=== PATIENT | female | born 1965 | race Caucasian/White ===

== ENCOUNTER 2019-08-04 12:29 | Outpatient (CLI) | payer BC ==
[2019-08-04 14:04] LABS: BASOPHILS # (AUTO) 0.1 /CMM (0.0-0.2); BASOPHILS % (AUTO) 0.6 % (0.0-2.0); HEMATOCRIT 43 % (33-45); HEMOGLOBIN 14.5 g/dL (11.5-14.8); LYMPHOCYTES % (AUTO) 19.2 % (20.0-44.0); MEAN CORPUSCULAR HGB CONC 33 g/dl (31.0-36.0); MEAN CORPUSCULAR VOLUME 86 fL (82-100); MONOCYTES # (AUTO) 0.6 /CMM (0.1-1.30); MONOCYTES % (AUTO) 5.5 % (2.0-12.0); NEUTROPHILS # (AUTO) 7.4 /CMM (1.8-8.9); NEUTROPHILS % (AUTO) 70.7 % (43.0-81.0); PLATELET COUNT (AUTO) 291 /CMM (150-450); RED BLOOD CELL COUNT(AUTO) 5.03 MIL/uL (4.0-5.2); WHITE BLOOD COUNT (AUTO) 10.5 K/uL (4.3-11.0)
[2019-08-04 14:50] LABS: ALBUMIN 3.8 g/dL (3.4-5.0); BILIRUBIN,TOTAL 0.3 mg/dL (0.2-1.0); CALCIUM, SERUM 9.8 mg/dL (8.5-10.1); CREATININE 1.4 mg/dL (0.6-1.3); POTASSIUM 3.2 mmol/L (3.5-5.1); TOTAL PROTEIN, SERUM 8.4 g/dL (6.4-8.2)
== END 2019-08-04 23:59 | disposition home or self-care (01) ==
LOC: LAB 12:29
PROVIDERS: ATTEND Surgery
DX: Z98.84 Bariatric surgery status (principal)
CPT/HCPCS: 36415; 80053-TC; 82525; 82570; 83540-TC; 84446; 85025-TC; 85610-TC; 85730-TC

== ENCOUNTER 2020-11-03 12:02 | Outpatient (CLI) | payer BC ==
[2020-11-03 15:20] LABS: BASOPHILS # (AUTO) 0.1 K/uL (0.0-0.2); BASOPHILS % (AUTO) 0.4 % (0.0-2.0); EOSINOPHILS % (AUTO) 3.5 % (0.0-6.0); HEMATOCRIT 40 % (33-45); HEMOGLOBIN 13.2 g/dL (11.5-14.8); LYMPHOCYTES # (AUTO) 2.1 K/uL (0.8-4.8); MEAN CORPUSCULAR HGB CONC 33 g/dl (31.0-36.0); MEAN CORPUSCULAR VOLUME 88 fL (82-100); MONOCYTES # (AUTO) 0.7 K/uL (0.1-1.30); MONOCYTES % (AUTO) 5.8 % (2.0-12.0); NEUTROPHILS # (AUTO) 8.6 K/uL (1.8-8.9); NEUTROPHILS % (AUTO) 72.3 % (43.0-81.0); PLATELET COUNT (AUTO) 262 K/uL (150-450); RED BLOOD CELL COUNT(AUTO) 4.51 MIL/uL (4.0-5.2); WHITE BLOOD COUNT (AUTO) 11.8 K/uL (4.3-11.0)
[2020-11-03 20:49] LABS: ALBUMIN 3.8 g/dL (3.4-5.0); BILIRUBIN,DIRECT 0.1 mg/dL (0.0-0.2); BILIRUBIN,TOTAL 0.2 mg/dL (0.2-1.0); CALCIUM, SERUM 9.3 mg/dL (8.5-10.1); CREATININE 1.4 mg/dL (0.6-1.3); POTASSIUM 3.2 mmol/L (3.5-5.1); TOTAL PROTEIN, SERUM 7.9 g/dL (6.4-8.2)
[2020-11-07 18:06] LABS: VITAMIN B6 43.4 ug/L (2.0-32.8)
[2020-11-10 11:07] LABS: VITAMIN B1 THIAMINE,WB 198.1 nmol/L (66.5-200.0)
== END 2020-11-03 23:59 | disposition home or self-care (01) ==
LOC: LAB 12:02
PROVIDERS: ATTEND Surgery
DX: E66.01 Morbid (severe) obesity due to excess calories (principal); Z98.84 Bariatric surgery status
CPT/HCPCS: 36415; 80053-TC; 82247-TC; 82248-TC; 83540-TC; 84207; 84425; 84446; 85025-TC; 86780

== ENCOUNTER 2021-03-09 10:08 | Outpatient (CLI) | payer BC ==
[2021-03-10] MEDS ORDERED: IBUP-1955 PO (16:20)
== END 2021-03-09 23:59 | disposition home or self-care (01) ==
LOC: US 10:08
PROVIDERS: ATTEND Internal Medicine
DX: M25.561 Pain in right knee (principal)
CPT/HCPCS: 76882

== ENCOUNTER 2021-03-10 14:54 | Emergency (ER) | payer BC ==
[~2021-03-10] VITALS: Ht 157.5 cm; Wt 113.4 kg
[2021-03-10 15:39] VITALS: BP 149/93
--- NOTE | 2021-03-10 15:43 | NUR ---
PT SEEN BY NATALY REID
--- NOTE | 2021-03-10 15:57 | NUR ---
PT SEEN BY ANALYTIC MANAGER
[2021-03-10] MEDS ORDERED: IBUP-1955 PO (16:20)
--- NOTE | 2021-03-10 16:31 | NUR ---
Patient discharged to home in stable condition. Written and verbal after care instructions given. Patient verbalizes understanding of instruction.
== END 2021-03-10 16:29 | disposition home or self-care (01) ==
LOC: ER 15:52
DX: S90.112A Contusion of left great toe without damage to nail, initial encounter (principal); Z88.6 Allergy status to analgesic agent; Z88.1 Allergy status to other antibiotic agents; W22.8XXA Striking against or struck by other objects, initial encounter; Y93.89 Activity, other specified; Y92.89 Other specified places as the place of occurrence of the external cause; Y99.8 Other external cause status
CPT/HCPCS: 73660-TC

== ENCOUNTER 2022-02-11 16:28 | Emergency (ER) | payer BC, OTHER ==
[~2022-02-11] VITALS: Ht 157.5 cm; Wt 113.4 kg
[~2022-02-11 16:28] MED LIST: IBUP-1955 PO
--- NOTE | 2022-02-11 17:10 | NUR ---
BIBS W/ COMPLAINT OF STOMACH PAIN, FEELS "CONSTIPATED AND DEHYDRATED"
--- NOTE | 2022-02-11 17:21 | NUR ---
Urine sample obtained and sent to lab
[2022-02-11] MEDS ORDERED: METOCLOPRAMIDE HCL 10 MG/2 ML VIAL IV ONE (17:30)
[2022-02-11] MEDS ORDERED: diphenhydrAMINE HCL 50 MG/ML VIAL IV ONE (17:30)
[2022-02-11] MEDS ORDERED: IV NS 0.9% 1,000 ML IV ONE (17:30)
[2022-02-11] MEDS ORDERED: LIDOCAINE VISCOUS 2% UD 15 ML UDC MM ONE (17:30)
--- NOTE | 2022-02-11 17:30 | NUR ---
BLOOD DRAWN AND SENT TO LAB.
[2022-02-11] MEDS ORDERED: LIDOCAINE VISCOUS 2% UD 15 ML UDC ONE (17:39)
[2022-02-11] MEDS ORDERED: diphenhydrAMINE HCL 50 MG/ML VIAL ONE (17:39)
[2022-02-11] MEDS ORDERED: METOCLOPRAMIDE HCL 10 MG/2 ML VIAL ONE (17:39)
[2022-02-11 18:03] LABS: BASOPHILS % (AUTO) 0.3 % (0.0-2.0); EOSINOPHILS % (AUTO) 0.8 % (0.0-6.0); HEMATOCRIT 40 % (33-45); HEMOGLOBIN 13.4 g/dL (11.5-14.8); LYMPHOCYTES # (AUTO) 0.8 K/uL (0.8-4.8); LYMPHOCYTES % (AUTO) 7.6 % (20.0-44.0); MEAN CORPUSCULAR HGB CONC 33 g/dl (31.0-36.0); MEAN CORPUSCULAR VOLUME 88 fL (82-100); MONOCYTES # (AUTO) 0.6 K/uL (0.1-1.30); MONOCYTES % (AUTO) 5.1 % (2.0-12.0); NEUTROPHILS # (AUTO) 9.4 K/uL (1.8-8.9); NEUTROPHILS % (AUTO) 86.2 % (43.0-81.0); PLATELET COUNT (AUTO) 274 K/uL (150-450); RED BLOOD CELL COUNT(AUTO) 4.59 MIL/uL (4.0-5.2); WHITE BLOOD COUNT (AUTO) 10.9 K/uL (4.3-11.0)
[2022-02-11 18:10] LABS: CALCIUM, SERUM 9.5 mg/dL (8.5-10.1); CREATININE 1.3 mg/dL (0.6-1.3); POTASSIUM 3.3 mmol/L (3.5-5.1)
[2022-02-11 18:16] LABS: ALBUMIN 3.7 g/dL (3.4-5.0); TOTAL PROTEIN, SERUM 8.2 g/dL (6.4-8.2)
--- NOTE | 2022-02-11 18:24 | NUR ---
Sherri almanzar in ED - 02/11/22 at 1825 by ALEX BIBS W/ COMPLAINT OF STOMACH PAIN, FEELS "CONSTIPATED AND DEHYDRATED".
[2022-02-11] MEDS ORDERED: POTASSIUM CHLORIDE 20 MEQ TAB.PRT.SR PO ONE ×2 (20:29→20:30)
--- NOTE | 2022-02-11 20:38 | NUR ---
U/S TECH AT BEDSIDE
--- NOTE | 2022-02-11 21:18 | NUR ---
IV removed. Catheter intact and site benign. Pressure and 4x4 applied to site. No bleeding noted.Patient discharged to home in stable condition. Written and verbal after care instructions given. Patient verbalizes understanding of instruction.
[2022-02-11 21:29] VITALS: BP 130/72
== END 2022-02-11 21:18 | disposition home or self-care (01) ==
LOC: ER 16:41
DX: R10.13 Epigastric pain (principal); R10.11 Right upper quadrant pain; K80.20 Calculus of gallbladder without cholecystitis without obstruction; E86.0 Dehydration; I10 Essential (primary) hypertension; J45.909 Unspecified asthma, uncomplicated; Z88.8 Allergy status to other drugs, medicaments and biological substances; Z79.1 Long term (current) use of non-steroidal anti-inflammatories (NSAID)
CPT/HCPCS: 99284; 96374; 76705; 96361; 96375; 85025; 83690; 36415; 80053; J1200; J2765; J7030

== ENCOUNTER 2022-12-05 16:54 | Emergency (ER) | payer BC, OTHER ==
[~2022-12-05] VITALS: Ht 157.5 cm; Wt 117.9 kg
[2022-12-05] MEDS ORDERED: IV NS 0.9% 1,000 ML BAG IV ONE (17:30)
[2022-12-05] MEDS ORDERED: KETOROLAC TROMETHAMINE INJ 30 MG/ML VIAL IV ONE (17:30)
[2022-12-05] MEDS ORDERED: KETOROLAC TROMETHAMINE INJ 30 MG/ML VIAL ONE (17:37)
[2022-12-05 17:47] LABS: BASOPHILS % (AUTO) 0.4 % (0.0-2.0); EOSINOPHILS # (AUTO) 0.4 K/uL (0.0-0.7); EOSINOPHILS % (AUTO) 3.6 % (0.0-6.0); HEMATOCRIT 37 % (33-45); HEMOGLOBIN 12.5 g/dL (11.5-14.8); LYMPHOCYTES # (AUTO) 1.9 K/uL (0.8-4.8); MEAN CORPUSCULAR HEMOGLOBIN 30 PG (26.0-33.0); MEAN CORPUSCULAR HGB CONC 33 g/dl (31.0-36.0); MEAN CORPUSCULAR VOLUME 88 fL (82-100); MONOCYTES # (AUTO) 0.8 K/uL (0.1-1.30); MONOCYTES % (AUTO) 7.6 % (2.0-12.0); NEUTROPHILS # (AUTO) 7.3 K/uL (1.8-8.9); NEUTROPHILS % (AUTO) 70.4 % (43.0-81.0); PLATELET COUNT (AUTO) 256 K/uL (150-450); RED BLOOD CELL COUNT(AUTO) 4.23 MIL/uL (4.0-5.2); RED CELL DISTRIBUTION WIDTH 14.4 % (11.5-15.0); WHITE BLOOD COUNT (AUTO) 10.4 K/uL (4.3-11.0)
[2022-12-05 18:03] LABS: CALCIUM, SERUM 9.4 mg/dL (8.5-10.1); CARBON DIOXIDE 30 mmol/L (21-32); CHLORIDE 101 mmol/L (98-107); CREATININE 1.2 mg/dL (0.6-1.3); GLUCOSE 130 mg/dL (74-106); POTASSIUM 3.5 mmol/L (3.5-5.1); SODIUM SERUM 138 mmol/L (136-145); UREA NITROGEN, BLOOD 28 mg/dL (7-18)
[2022-12-05 18:09] LABS: ALANINE AMINOTRANSFERASE 33 U/L (12-78); ALBUMIN 3.5 g/dL (3.4-5.0); ALKALINE PHOSPHATASE 97 U/L (46-116); ASPARTATE AMINOTRANSFERASE 22 U/L (15-37); BILIRUBIN,DIRECT 0.1 mg/dL (0.0-0.2); BILIRUBIN,TOTAL 0.2 mg/dL (0.2-1.0); LIPASE 124 U/L (73-393); TOTAL PROTEIN, SERUM 7.5 g/dL (6.4-8.2)
[2022-12-05 18:27] LABS: APPEARANCE,URINE CLEAR (CLEAR); BILIRUBIN,URINE NEGATIVE (NEGATIVE); BLOOD, URINE NEGATIVE Ery/uL (NEGATIVE); COLOR,URINE YELLOW (YELLOW); KETONES,URINE NEGATIVE (NEGATIVE); LEUKOCYTE ESTERASE ,URINE NEGATIVE (NEGATIVE); NITRITE, URINE NEGATIVE (NEGATIVE); PH,URINE 5.5 (5.0-8.0); PROTEIN,URINE NEGATIVE (NEGATIVE); UGLUCOSE NEGATIVE (NEGATIVE); UROBILINOGEN,URINE 0.2 EU/dL (0.2)
[2022-12-05 21:35] VITALS: BP 117/85; TEMP 98.7; O2SAT 97
== END 2022-12-05 21:22 | disposition home or self-care (01) ==
LOC: ER 16:56
DX: N20.0 Calculus of kidney (principal); I10 Essential (primary) hypertension; J45.909 Unspecified asthma, uncomplicated; Z79.899 Other long term (current) drug therapy; Z88.5 Allergy status to narcotic agent; Z88.1 Allergy status to other antibiotic agents
CPT/HCPCS: 99285; 74176; 96374; 76700; 96361; 93005; 85025; 80048; 83690; 80076; 81003; 36415; 84484; J1885; J7030

== ENCOUNTER 2023-12-12 16:48 | Emergency (ER) | payer BC, OTHER ==
[~2023-12-12] VITALS: Ht 157.5 cm; Wt 117.9 kg
[2023-12-12 17:25] LABS: BASOPHILS # (AUTO) 0.1 K/uL (0.0-0.2); BASOPHILS % (AUTO) 0.6 % (0.0-2.0); EOSINOPHILS # (AUTO) 0.4 K/uL (0.0-0.7); EOSINOPHILS % (AUTO) 3.9 % (0.0-6.0); HEMATOCRIT 40 % (33-45); HEMOGLOBIN 13.4 g/dL (11.5-14.8); MEAN CORPUSCULAR HEMOGLOBIN 30 PG (26.0-33.0); MEAN CORPUSCULAR HGB CONC 34 g/dl (31.0-36.0); MEAN CORPUSCULAR VOLUME 89 fL (82-100); MONOCYTES # (AUTO) 0.8 K/uL (0.1-1.30); MONOCYTES % (AUTO) 7.8 % (2.0-12.0); NEUTROPHILS # (AUTO) 6.5 K/uL (1.8-8.9); NEUTROPHILS % (AUTO) 66.7 % (43.0-81.0); PLATELET COUNT (AUTO) 269 K/uL (150-450); RED BLOOD CELL COUNT(AUTO) 4.46 MIL/uL (4.0-5.2); RED CELL DISTRIBUTION WIDTH 14.5 % (11.5-15.0); WHITE BLOOD COUNT (AUTO) 9.7 K/uL (4.3-11.0)
[2023-12-12 17:37] LABS: CALCIUM, SERUM 9.9 mg/dL (8.5-10.1); CREATININE 1.3 mg/dL (0.6-1.3); POTASSIUM 3.2 mmol/L (3.5-5.1)
[2023-12-12] MEDS ORDERED: KETOROLAC TROMETHAMINE 15 MG/ML VIAL ONE (17:41)
[2023-12-12 17:49] LABS: ALBUMIN 3.5 g/dL (3.4-5.0); BILIRUBIN,TOTAL 0.3 mg/dL (0.2-1.0); TOTAL PROTEIN, SERUM 7.2 g/dL (6.4-8.2)
[2023-12-12] MEDS: KETOROLAC TROMETHAMINE 15 MG/ML VIAL IV ONE (17:50)
[2023-12-12] MEDS: IV NS 0.9% 250 ML BAG IV ONE (17:50)
[2023-12-12 17:51] LABS: APPEARANCE,URINE Clear (CLEAR); BILIRUBIN,URINE Negative (NEGATIVE); BLOOD, URINE Trace-intact Ery/uL (NEGATIVE); COLOR,URINE YELLOW (YELLOW); KETONES,URINE Negative (NEGATIVE); LEUKOCYTE ESTERASE ,URINE Negative (NEGATIVE); NITRITE, URINE Negative (NEGATIVE); PH,URINE 5.5 (5.0-8.0); PROTEIN,URINE Negative (NEGATIVE); UGLUCOSE Negative (NEGATIVE); UROBILINOGEN,URINE 0.2 EU/dL (0.2)
[2023-12-12] MEDS ORDERED: IOHEXOL-300 100 ML VIAL IV ONE (17:54)
[2023-12-12] MEDS ORDERED: IV NS 0.9% 250 ML IV ONE (17:54)
[2023-12-12 17:56] LABS: LACTIC ACID 1.2 mmol/L (0.4-2.0)
[2023-12-12 17:59] LABS: ADD URINE CULTURE NO; BACTERIA,URINE Few /HPF (None Seen); SQUAMOUS EPITHELIAL CELL,UR Few /HPF (None Seen); WBC,URINE 0-2 /HPF (0-3)
[2023-12-12] MEDS ORDERED: KETO10TA2 PO (19:11)
[2023-12-12 19:54] VITALS: BP 138/84; TEMP 98.3; O2SAT 99
== END 2023-12-12 19:55 | disposition home or self-care (01) ==
LOC: ER 17:06
DX: K80.70 Calculus of gallbladder and bile duct without cholecystitis without obstruction (principal); R10.11 Right upper quadrant pain; I10 Essential (primary) hypertension; J45.909 Unspecified asthma, uncomplicated; G47.419 Narcolepsy without cataplexy; Z88.5 Allergy status to narcotic agent; Z98.84 Bariatric surgery status; Z88.8 Allergy status to other drugs, medicaments and biological substances
CPT/HCPCS: 99285; 96374; 71260; 76705; 96361; 85025; 80048; 83605; 83690; 80076; 81001; 36415; J7030; J7050; Q9967; J1885

== ENCOUNTER 2023-12-23 07:35 | Inpatient (IN) | payer BC, OTHER ==
[~2023-12-23] VITALS: Ht 157.5 cm; Wt 117.9 kg
[~2023-12-23 07:35] MED LIST changes: +KETO10TA2 PO
[2023-12-23] MEDS ORDERED: ONDANSETRON HCL/PF 4 MG/2 ML VIAL ONE (08:18)
[2023-12-23] MEDS ORDERED: MORPHINE SULFATE INJ 4 MG/ML DISP.SYRIN ONE (08:19)
[2023-12-23] MEDS: IV NS 0.9% 1,000 ML BAG IV ONE (08:22)
[2023-12-23] MEDS: ONDANSETRON HCL/PF 4 MG/2 ML VIAL IVP ONE (08:23)
[2023-12-23] MEDS: MORPHINE SULFATE INJ 2 MG/ML DISP.SYRIN IV ONE (08:23)
[2023-12-23 08:24] LABS: BASOPHILS % (AUTO) 0.4 % (0.0-2.0); EOSINOPHILS # (AUTO) 0.3 K/uL (0.0-0.7); EOSINOPHILS % (AUTO) 3.3 % (0.0-6.0); HEMATOCRIT 37 % (33-45); HEMOGLOBIN 12.3 g/dL (11.5-14.8); LYMPHOCYTES # (AUTO) 1.6 K/uL (0.8-4.8); LYMPHOCYTES % (AUTO) 14.9 % (20.0-44.0); MEAN CORPUSCULAR HEMOGLOBIN 29 PG (26.0-33.0); MEAN CORPUSCULAR HGB CONC 33 g/dl (31.0-36.0); MEAN CORPUSCULAR VOLUME 89 fL (82-100); MONOCYTES % (AUTO) 9.3 % (2.0-12.0); NEUTROPHILS # (AUTO) 7.6 K/uL (1.8-8.9); NEUTROPHILS % (AUTO) 72.1 % (43.0-81.0); PLATELET COUNT (AUTO) 240 K/uL (150-450); RED BLOOD CELL COUNT(AUTO) 4.19 MIL/uL (4.0-5.2); RED CELL DISTRIBUTION WIDTH 14.8 % (11.5-15.0); WHITE BLOOD COUNT (AUTO) 10.5 K/uL (4.3-11.0)
[2023-12-23 08:47] LABS: ALBUMIN 3.4 g/dL (3.4-5.0); BILIRUBIN,DIRECT 0.1 mg/dL (0.0-0.2); BILIRUBIN,TOTAL 0.3 mg/dL (0.2-1.0); CALCIUM, SERUM 9.3 mg/dL (8.5-10.1); CREATININE 1.4 mg/dL (0.6-1.3); POTASSIUM 3.1 mmol/L (3.5-5.1); TOTAL PROTEIN, SERUM 7.4 g/dL (6.4-8.2)
[2023-12-23] MEDS ORDERED: MONT10TA22 GT (10:22)
[2023-12-23] MEDS ORDERED: DOCU100T2 PO (10:22)
[2023-12-23] MEDS ORDERED: FERR325T28 PO (10:22)
[2023-12-23] MEDS ORDERED: IBUP-2715 PO (10:22)
[2023-12-23] MEDS ORDERED: FLUT1BLS IH (10:22)
[2023-12-23] MEDS ORDERED: CLON0.1T PO (10:22)
[2023-12-23] MEDS ORDERED: MULT-594 PO (10:22)
[2023-12-23] MEDS ORDERED: DICL100G26 TP (10:22)
[2023-12-23] MEDS ORDERED: FAMO20TA80 PO (10:22)
[2023-12-23] MEDS ORDERED: BIOT25008 PO (10:22)
[2023-12-23] MEDS ORDERED: LORA10TA68 PO (10:22)
[2023-12-23] MEDS ORDERED: ACET-2030 PO (10:22)
[2023-12-23] MEDS ORDERED: AMLO2.5T2 PO (10:22)
[2023-12-23] MEDS ORDERED: TRIA1CAP20 PO (10:22)
[2023-12-23] MEDS ORDERED: AMPH30CA3 PO (10:22)
[2023-12-23] MEDS ORDERED: ALBU8.5H8 IH (10:22)
[2023-12-23] MEDS ORDERED: IOHEXOL-300 100 ML VIAL IV ONE (10:55)
[2023-12-23] MEDS ORDERED: IV NS 0.9% 250 ML IV ONE (10:56)
[2023-12-23] MEDS ORDERED: Z GUARD REMEDY 4 OZ OINT TP PRN (13:30)
[2023-12-23] MEDS: ENOXAPARIN SODIUM 40 MG/0.4 ML DISP.SYRIN SQ SCH (14:00)
[2023-12-23] MEDS: IV D5/0.45 NACL 1,000 ML IV PRN (15:00)
[2023-12-23] MEDS: POTASSIUM CL. PREMIX PERIPHER. 50 ML IV SCH (15:09)
[2023-12-23 16:00] VITALS: BP 147/86; TEMP 97.9; O2SAT 95
[2023-12-23] MEDS: ZOSYN IVPB 2.25 G in IV D5W 50ml IV SCH (16:20)
[2023-12-23 20:00] VITALS: BP 143/78; TEMP 98.2; O2SAT 97
[2023-12-23] MEDS: MORPHINE SULFATE INJ 2 MG/ML DISP.SYRIN IV PRN (20:53)
[2023-12-23] MEDS: ONDANSETRON HCL/PF 4 MG/2 ML VIAL IVP PRN (21:48)
[2023-12-24] MEDS: diphenhydrAMINE HCL 50 MG/ML VIAL IV ONE (04:51)
[2023-12-24 06:35] LABS: BASOPHILS % (AUTO) 0.3 % (0.0-2.0); EOSINOPHILS # (AUTO) 0.3 K/uL (0.0-0.7); EOSINOPHILS % (AUTO) 3.1 % (0.0-6.0); HEMATOCRIT 37 % (33-45); HEMOGLOBIN 12.3 g/dL (11.5-14.8); LYMPHOCYTES # (AUTO) 1.6 K/uL (0.8-4.8); LYMPHOCYTES % (AUTO) 16.5 % (20.0-44.0); MEAN CORPUSCULAR HEMOGLOBIN 30 PG (26.0-33.0); MEAN CORPUSCULAR HGB CONC 33 g/dl (31.0-36.0); MEAN CORPUSCULAR VOLUME 89 fL (82-100); MONOCYTES # (AUTO) 0.8 K/uL (0.1-1.30); MONOCYTES % (AUTO) 8.8 % (2.0-12.0); NEUTROPHILS # (AUTO) 6.7 K/uL (1.8-8.9); NEUTROPHILS % (AUTO) 71.3 % (43.0-81.0); PLATELET COUNT (AUTO) 235 K/uL (150-450); RED BLOOD CELL COUNT(AUTO) 4.16 MIL/uL (4.0-5.2); RED CELL DISTRIBUTION WIDTH 14.7 % (11.5-15.0); WHITE BLOOD COUNT (AUTO) 9.4 K/uL (4.3-11.0)
[2023-12-24 06:44] LABS: CALCIUM, SERUM 9.6 mg/dL (8.5-10.1); CREATININE 1.1 mg/dL (0.6-1.3); MAGNESIUM 1.5 mg/dL (1.8-2.4); PHOSPHORUS 3.3 mg/dL (2.5-4.9)
[2023-12-24 07:01] LABS: THYROID STIMULATING HORMONE 4.13 uIU/mL (0.358-3.74)
[2023-12-24] MEDS: FAMOTIDINE/PF INJ 20 MG/2 ML VIAL IV SCH (08:04)
[2023-12-24 08:23] VITALS: BP 154/70; TEMP 99; O2SAT 94
[2023-12-24] MEDS ORDERED: PANTOPRAZOLE 40 MG VIAL IV SCH (09:00)
[2023-12-24] MEDS: POTASSIUM CL. PREMIX PERIPHER. 50 ML IV SCH (10:31)
[2023-12-24] MEDS: diphenhydrAMINE HCL 50 MG/ML VIAL IV PRN (11:11)
[2023-12-24] MEDS: Magnesium 1GM/D5W 100ML PREMIX 100 ML IV SCH (11:12)
[2023-12-24] MEDS: ZOSYN IVPB 3.375 G in IV D5W 50ml IV ONE (14:05)
[2023-12-24 16:07] VITALS: BP 127/84; TEMP 98.4; O2SAT 93
[2023-12-24] MEDS: ZOSYN IVPB 3.375 G in IV D5W 50ml IV SCH (17:41)
[2023-12-24 20:00] VITALS: BP 126/83; TEMP 98.4; O2SAT 94
[2023-12-25 06:49] LABS: BASOPHILS % (AUTO) 0.2 % (0.0-2.0); EOSINOPHILS # (AUTO) 0.2 K/uL (0.0-0.7); EOSINOPHILS % (AUTO) 1.6 % (0.0-6.0); HEMATOCRIT 35 % (33-45); HEMOGLOBIN 11.8 g/dL (11.5-14.8); LYMPHOCYTES # (AUTO) 1.3 K/uL (0.8-4.8); LYMPHOCYTES % (AUTO) 10.9 % (20.0-44.0); MEAN CORPUSCULAR HEMOGLOBIN 30 PG (26.0-33.0); MEAN CORPUSCULAR HGB CONC 34 g/dl (31.0-36.0); MEAN CORPUSCULAR VOLUME 89 fL (82-100); MONOCYTES % (AUTO) 8.5 % (2.0-12.0); NEUTROPHILS # (AUTO) 9.7 K/uL (1.8-8.9); NEUTROPHILS % (AUTO) 78.8 % (43.0-81.0); PLATELET COUNT (AUTO) 222 K/uL (150-450); RED BLOOD CELL COUNT(AUTO) 3.96 MIL/uL (4.0-5.2); RED CELL DISTRIBUTION WIDTH 14.7 % (11.5-15.0); WHITE BLOOD COUNT (AUTO) 12.3 K/uL (4.3-11.0)
[2023-12-25 07:00] VITALS: BP 140/68; TEMP 98.2; O2SAT 92
[2023-12-25 07:30] LABS: BILIRUBIN,TOTAL 0.5 mg/dL (0.2-1.0); MAGNESIUM 1.8 mg/dL (1.8-2.4)
[2023-12-25] MEDS: POTASSIUM CL. PREMIX PERIPHER. 50 ML IV SCH (10:59)
[2023-12-25] MEDS ORDERED: BUPIVACAINE 0.5 % PF 150 MG/30 ML VIAL ONE (11:37)
[2023-12-25] MEDS ORDERED: LIDOCAINE 1%-EPI 1:100,000 20 ML VIAL ONE (11:37)
[2023-12-25] MEDS ORDERED: FENTANYL PF 250MCG/5ML AMPUL ONE (13:05)
[2023-12-25] MEDS ORDERED: ROCURONIUM BROMIDE 50 MG/5 ML ONE (13:06)
[2023-12-25] MEDS ORDERED: IOHEXOL 0 ML IV ONE (14:10)
[2023-12-25] MEDS ORDERED: CELLULOSE,OXIDIZED 1 EA PACK MC ONE ×2 (14:29)
[2023-12-25] MEDS ORDERED: HEMOSTATIC MATRIX 8 ML 1 EACH PAD MC ONE (15:17)
[2023-12-25 16:00] VITALS: BP 123/73; TEMP 97.5; O2SAT 92
[2023-12-25 16:55] VITALS: BP 140/70; TEMP 97.5; O2SAT 92
[2023-12-25] MEDS: GABAPENTIN 300 MG CAPSULE PO SCH (17:58)
[2023-12-25 20:00] VITALS: BP 142/81; TEMP 98.2; O2SAT 92
[2023-12-26 06:28] LABS: BASOPHILS % (AUTO) 0.3 % (0.0-2.0); EOSINOPHILS # (AUTO) 0.2 K/uL (0.0-0.7); EOSINOPHILS % (AUTO) 1.1 % (0.0-6.0); HEMATOCRIT 36 % (33-45); HEMOGLOBIN 11.9 g/dL (11.5-14.8); LYMPHOCYTES # (AUTO) 0.7 K/uL (0.8-4.8); LYMPHOCYTES % (AUTO) 3.8 % (20.0-44.0); MEAN CORPUSCULAR HEMOGLOBIN 29 PG (26.0-33.0); MEAN CORPUSCULAR HGB CONC 33 g/dl (31.0-36.0); MEAN CORPUSCULAR VOLUME 89 fL (82-100); MONOCYTES # (AUTO) 1.4 K/uL (0.1-1.30); MONOCYTES % (AUTO) 7.8 % (2.0-12.0); NEUTROPHILS # (AUTO) 16.1 K/uL (1.8-8.9); PLATELET COUNT (AUTO) 229 K/uL (150-450); RED BLOOD CELL COUNT(AUTO) 4.07 MIL/uL (4.0-5.2); RED CELL DISTRIBUTION WIDTH 14.8 % (11.5-15.0); WHITE BLOOD COUNT (AUTO) 18.5 K/uL (4.3-11.0)
[2023-12-26 06:41] LABS: ALBUMIN 2.8 g/dL (3.4-5.0); BILIRUBIN,TOTAL 0.5 mg/dL (0.2-1.0); CALCIUM, SERUM 8.5 mg/dL (8.5-10.1); MAGNESIUM 1.6 mg/dL (1.8-2.4); PHOSPHORUS 2.7 mg/dL (2.5-4.9); POTASSIUM 3.2 mmol/L (3.5-5.1); TOTAL PROTEIN, SERUM 6.9 g/dL (6.4-8.2)
[2023-12-26 08:00] VITALS: BP 136/81; TEMP 99; O2SAT 90
[2023-12-26] MEDS: ATORVASTATIN 10 MG TABLET PO SCH (08:23)
[2023-12-26] MEDS: POTASSIUM CHLORIDE 20 MEQ TAB.PRT.SR PO SCH (08:23)
[2023-12-26] MEDS: MAGNESIUM OXIDE 400 MG TABLET PO ONE (10:37)
[2023-12-26 14:10] LABS: AMYLASE 31 U/L (25-115); LIPASE 23 U/L (16-77)
[2023-12-26 15:35] LABS: INR 1.07 (0.91-1.10); PROTHROMBIN TIME 11.3 SECS (9.2-11.1)
[2023-12-26 16:00] VITALS: BP 133/58; TEMP 99.7; O2SAT 92
[2023-12-26] MEDS: GABAPENTIN 100 MG CAPSULE PO SCH (16:48)
[2023-12-26 20:00] VITALS: BP 141/73; TEMP 99; O2SAT 100
[2023-12-27] MEDS: HYDROCODONE/APAP 5/325MG TABLET PO PRN (01:54)
[2023-12-27] MEDS: FAMOTIDINE (20 MG) 20 MG TABLET PO SCH (07:22)
[2023-12-27 08:00] VITALS: BP 156/82; TEMP 98.2; O2SAT 93
[2023-12-27 10:42] LABS: BASOPHILS # (AUTO) 0.1 K/uL (0.0-0.2); BASOPHILS % (AUTO) 0.4 % (0.0-2.0); EOSINOPHILS # (AUTO) 0.7 K/uL (0.0-0.7); EOSINOPHILS % (AUTO) 4.7 % (0.0-6.0); HEMATOCRIT 32 % (33-45); HEMOGLOBIN 10.8 g/dL (11.5-14.8); LYMPHOCYTES % (AUTO) 7.1 % (20.0-44.0); MEAN CORPUSCULAR HEMOGLOBIN 30 PG (26.0-33.0); MEAN CORPUSCULAR HGB CONC 34 g/dl (31.0-36.0); MEAN CORPUSCULAR VOLUME 89 fL (82-100); MONOCYTES # (AUTO) 1.2 K/uL (0.1-1.30); MONOCYTES % (AUTO) 8.5 % (2.0-12.0); NEUTROPHILS # (AUTO) 11.3 K/uL (1.8-8.9); NEUTROPHILS % (AUTO) 79.3 % (43.0-81.0); PLATELET COUNT (AUTO) 208 K/uL (150-450); RED BLOOD CELL COUNT(AUTO) 3.59 MIL/uL (4.0-5.2); RED CELL DISTRIBUTION WIDTH 15.1 % (11.5-15.0); WHITE BLOOD COUNT (AUTO) 14.3 K/uL (4.3-11.0)
[2023-12-27 10:58] LABS: CALCIUM, SERUM 8.4 mg/dL (8.5-10.1); CREATININE 1.1 mg/dL (0.6-1.3); MAGNESIUM 1.5 mg/dL (1.8-2.4); POTASSIUM 3.3 mmol/L (3.5-5.1)
[2023-12-27] MEDS: POTASSIUM CHLORIDE 20 MEQ TAB.PRT.SR PO ONE (14:26)
[2023-12-27] MEDS: MAGNESIUM OXIDE 400 MG TABLET PO ONE (14:26)
[2023-12-27 16:00] VITALS: BP 149/79; TEMP 98.2; O2SAT 94
== END 2023-12-27 17:58 | disposition home or self-care (01) | DRG 418 ==
LOC: ER 07:39 → MED 10:34
PROC: 0FT44ZZ Resection of Gallbladder, Percutaneous Endoscopic Approach (ICD-10-PCS; principal; 2023-12-25)
PROC: 0FB04ZX Excision of Liver, Percutaneous Endoscopic Approach, Diagnostic (ICD-10-PCS; 2023-12-25)
DX: K80.00 Calculus of gallbladder with acute cholecystitis without obstruction (principal); Z68.42 Body mass index [BMI] 45.0-49.9, adult; I10 Essential (primary) hypertension; E87.6 Hypokalemia; E83.42 Hypomagnesemia; J45.909 Unspecified asthma, uncomplicated; K59.00 Constipation, unspecified; K76.0 Fatty (change of) liver, not elsewhere classified; G47.419 Narcolepsy without cataplexy; E11.9 Type 2 diabetes mellitus without complications; E66.01 Morbid (severe) obesity due to excess calories; D72.829 Elevated white blood cell count, unspecified; Z98.84 Bariatric surgery status; Z88.8 Allergy status to other drugs, medicaments and biological substances
CPT/HCPCS: 36415; 71045-TC; 74181-TC; 76700-TC; 80048-TC; 80053-TC; 80061-TC; 80076-TC; 82150-TC; 82247-TC; 83690-TC; 83735-TC; 84100-TC; 84443-TC; 85025-TC; 85610-TC; 87081-TC; 93307-TC; A4223; A6253; G0378; J0360; J1100; J1200; J1885; J2270; J2405; J2543; J2704; J3010; J3475; J3480; J3490; J7030; J7050; J7060; Q9967